=== PATIENT | male | born 1975 | race Caucasian/White ===

== ENCOUNTER → 2018-10-16 | Outpatient (CLI) | payer BC ==
--- NOTE | 2018-10-16 11:40 | Diagnostic Imaging Report ---
CLINICAL INDICATION: Patient with hypertension. EXAM: Renal ultrasound with Doppler interrogation. COMPARISON: None. FINDINGS: The bladder is not imaged on this exam. Both kidneys are normal in size, shape, echogenicity and cortical thickness without hydronephrosis, stones, or focal lesions with the right and left kidneys measuring 11.4 cm and 11.3 cm in their craniocaudal dimensions, respectively. Of note, bowel gas obscures evaluation of the proximal main right renal artery. Abdominal aorta (peak systolic velocity): 85.6 cm/sec Right main renal artery Doppler(peak systolic): Proximal: Obscured cm/sec; Obscured RA/AO ratio Mid: 41.5 cm/sec; 0.5 RA/AO ratio Distal: 29.9 cm/sec; 0.3 RA/AO ratio [place]: 0.43-0.61 Left main renal artery Doppler(peak systolic): Proximal: 51.5 cm/sec; 0.6 RA/AO ratio Mid: 31.8 cm/sec; 0.4 RA/AO ratio Distal: 37.1 cm/sec; 0.4 RA/AO ratio [place] RI: 0.47-0.50 IMPRESSION: 1: Of note, bowel gas obscures evaluation of the proximal main right renal artery and it cannot be evaluated. 2: Otherwise, unremarkable bilateral renal ultrasound with no evidence of renal artery stenosis. Dictated by: Dictated on workstation # [id number]
== END ==
LOC: RAD 09:54
PROVIDERS: ATTEND Family Medicine
DX: N28.1 Cyst of kidney, acquired (principal); I10 Essential (primary) hypertension; G47.30 Sleep apnea, unspecified; R01.1 Cardiac murmur, unspecified
CPT/HCPCS: 76770; 93306; 93975

== ENCOUNTER → 2023-01-09 | Outpatient (CLI) | payer BC ==
--- NOTE | 2023-01-09 10:05 | Diagnostic Imaging Report ---
Indication: Right shoulder pain AP, oblique, and transscapular views the right shoulder are obtained. No fracture or acute bony abnormality is seen. Glenohumeral joint and AC joint appear unremarkable. IMPRESSION: Negative right shoulder. Dictated by: Dictated on workstation # [id number]
== END ==
LOC: RAD 07:56
PROVIDERS: ATTEND Family Medicine
DX: M25.511 Pain in right shoulder (principal); G89.29 Other chronic pain
CPT/HCPCS: 73030